=== PATIENT | female | born 1995 | race Caucasian/White ===

== ENCOUNTER 2018-06-03 16:39 | Emergency (ER) | payer BC ==
[2018-06-03 17:17] VITALS: BP 130/62
--- NOTE | 2018-06-03 18:01 | UC ---
Ear Complaint HPI - HPI Summary HPI Summary: 23-year-old female presents with 3 week history of bilateral ear pain. States that at onset of symptoms and had some sore throat associated with the ear pain. States that she had a negative rapid strep and was told that there was some fluid in her ears and started on a Medrol Dosepak. She states the sore throat has improved however the ear pain continued. She was seen by an urgent care here her home on 05/29/2018 for the continued ear pain, was told that she has some fluid behind her years and placed on a another 5 day course of prednisone which she completed yesterday. She has also been using fluticasone nasal spray daily. States that there has been no improvement in her symptoms and this morning she thought she noticed some drainage from the ears. Denies fever, chills, nasal congestion, sore throat, hearing loss, tinnitus, dizziness , vertigo, cough, chest pain, shortness of breath, abdominal pain, nausea or vomiting. - History of Current Complaint Chief Complaint: UCEar Stated Complaint: BILATERAL EAR PAIN Time Seen by Provider: 06/03/18 17:30 Hx Obtained From: Patient Hx Last Menstrual Period: 05/26/18 Onset/Duration: Gradual Onset, Lasting Weeks Severity Currently: Mild Pain Intensity: 3 Aggravating Factors: Nothing Alleviating Factors: Nothing Associated Signs/Symptoms: Positive: Discharge. Negative: Hearing Loss, URI Symptoms - Allergies/Home Medications Allergies/Adverse Reactions: Allergies Allergy/AdvReac Type Severity Reaction Status Date / Time No Known Allergies Allergy Verified 06/03/18 17:10 Home Medications: Home Medications NK [No Home Medications Reported] 06/03/18 [History Confirmed 06/03/18] PMH/Surg Hx/FS Hx/Imm Hx Previously Healthy: Yes - Denies significant PMH - Surgical History Surgical History: None - Family History Known Family History: Positive: Non-Contributory - Social History Occupation: Student Lives: Dormitory/Roommates Alcohol Use: Weekly Substance Use Type: None Smoking Status (MU): Never Smoked Tobacco - Immunization History Most Recent Tetanus Shot: UTD Review of Systems All Other Systems Reviewed And Are Negative: Yes Constitutional: Negative: Fever, Chills Skin: Negative: Rash Eyes: Negative: Drainage, Eye Redness ENT: Positive: Ear Ache. Negative: Sore Throat, Nasal Discharge, Sinus Congestion, Sinus Pain/Tenderness Respiratory: Negative: Shortness Of Breath, Cough Cardiovascular: Negative: Chest Pain Gastrointestinal: Negative: Abdominal Pain, Vomiting, Nausea Is Patient Immunocompromised?: No Physical Exam - Summary Physical Exam Summary: GENERAL APPEARANCE: Well developed, well nourished, alert and cooperative, and appears to be in no acute distress. EYES: Conjunctiva clear without drainage. EARS: External auditory canals and tympanic membranes clear, hearing grossly intact. NOSE: No nasal discharge. THROAT: Oral cavity and pharynx normal. No inflammation, swelling, exudate, or lesions. Teeth and gingiva in good general condition. NECK: Neck supple, non-tender without lymphadenopathy. CARDIAC: Normal S1 and S2. No S3, S4 or murmurs. Rhythm is regular. There is no peripheral edema, cyanosis or pallor. Extremities are warm and well perfused. Capillary refill is less than 2 seconds. LUNGS: Clear to auscultation and percussion without rales, rhonchi, wheezing or diminished breath sounds. ABDOMEN: Positive bowel sounds. Soft, nondistended, nontender. No guarding or rebound. No masses or hepatosplenomegally. NEUROLOGICAL: Awake, alert, and oriented. SKIN: Skin normal color, texture and turgor with no lesions or eruptions. Triage Information Reviewed: Yes Vital Signs: Initial Vital Signs Temp 98.2 F 06/03/18 17:11 Pulse 89 06/03/18 17:11 Resp 16 06/03/18 17:11 BP 130/62 06/03/18 17:11 Pulse Ox 100 06/03/18 17:11 Vital Signs Reviewed: Yes Ear Complaint Course/Dx - Course Course Of Treatment: 23-year-old female presents with 3 week history of bilateral ear pain. States that at onset of symptoms and had some sore throat associated with the ear pain. States that she had a negative rapid strep and was told that there was some fluid in her ears and started on a Medrol Dosepak. She states the sore throat has improved however the ear pain continued. She was seen by an urgent care here her home on 05/29/2018 for the continued ear pain, was told that she has some fluid behind her years and placed on a another 5 day course of prednisone which she completed yesterday. She has also been using fluticasone nasal spary daily. States that there has been no improvement in her symptoms and this morning she thought she noticed some drainage from the ears. Denies fever, chills, nasal congestion, sore throat, hearing loss, tinnitus, dizziness, vertigo, cough, chest pain, shortness of breath, abdominal pain, nausea or vomiting. Afebrile. Exam unremarkable. Will have patient continue with fluticasone nasal spray for suspected eustachian tube dysfunction and provide her with a referral to ENT for further evaluation and treatment. Warning symptoms reviewed. Verbalizes understanding and agrees with POC. - Differential Dx/Diagnosis Differential Diagnosis/HQI/PQRI: Cerumen Impaction, Otitis Externa, Otitis Media , Perforated TM Provider Diagnosis: Otalgia, bilateral Discharge - Sign-Out/Discharge Documenting (check all that apply): Patient Departure All imaging exams completed and their final reports reviewed: No Studies - Discharge Plan Condition: Stable Disposition: HOME Patient Education Materials: Serous Otitis Media (ED) Referrals: No Primary Care Phys,NOPCP [Primary Care Provider] - Meliton Perry MD [Medical Doctor] - 2 Weeks (Call [phone] to schedule an appointment.) Additional Instructions: Your exam showed no evidence of an ear infection. Continue using the fluticasone (Flonase) nasal spray 2 spays each nostril once daily. Try using an over the counter decongestant such as Sudafed according to directions to help with the nasal congestion. Follow up with Dr. Wyatt, ENT, for further evaluation. Call [phone] tomorrow to schedule an appointment within the next 2 weeks. Seek immediate medical attention in the emergency room if you develop fever greater than 100.5 F, have worsening pain, blood from the ear(s), loss of hearing, or any worsening of symptoms. - Billing Disposition and Condition Condition: STABLE Disposition: Home
== END 2018-06-03 18:10 | disposition home or self-care (01) ==
LOC: UCCORT 16:39
DX: H92.03 Otalgia, bilateral (principal)
CPT/HCPCS: 99201; G0463